=== PATIENT | male | born 1955 | race Two or more races ===

== ENCOUNTER → 2020-10-05 | Outpatient (CLI) | payer OTHER ==
[2019-10-22 15:41] VITALS: BP 94/41
[~2020-10-05] MED LIST: FLUV100T2 PO; LISI-334 PO
--- NOTE | 2020-10-05 10:57 | EKG ---
[facility] [address] [place] [address] Test Date: 2020-10-05 Test Time: 10:53:01 Pat Name: NICOLE ADKINS Department: Room: Gender: M [employer]: : 1955 Requested By: HALINA TELLEZ Order Number: [id number] Reading MD: Henry Gage Measurements Intervals [place] Rate: 69 P: 54 NM: 138 QRS: 70 QRSD: 74 T: 59 QT: 380 QTc: 409 Interpretive Statements SINUS RHYTHM NORMAL ECG RI6.02 Compared to ECG 10/20/2019 21:27:32 No significant changes Electronically Signed On 10-08-2020 11:49:07 COMMERCIAL PHOTOGRAPHER by Henry Gage
[2020-10-05 11:10] LABS: BASO # 0.1 x10^3/uL (0.0-0.2); BASO % 2 % (0-3); EOS # 0.2 x10^3/uL (0.0-0.7); EOS % 3 % (0-3); HEMATOCRIT 29.4 % (39.0-53.0); HEMOGLOBIN 9.9 g/dL (13.0-17.5); LYMPH # 0.8 x10^3/uL (1.0-4.8); LYMPH % 13 % (24-48); MEAN CORPUSCULAR HEMOGLOBIN 29 pg (25-35); MEAN CORPUSCULAR HGB CONC 34 g/dL (31-37); MEAN CORPUSCULAR VOLUME 86 fL (79-100); MONO # 0.6 x10^3/uL (0.0-1.1); MONO % 10 % (0-9); NEUT # 4.8 x10^3/uL (1.8-7.7); NEUT % 73 % (31-73); PLATELET COUNT 344 x10^3/uL (140-400); RED BLOOD COUNT 3.43 x10^6/uL (4.30-5.70); RED CELL DISTRIBUTION WIDTH 16.7 % (11.5-14.5); WHITE BLOOD COUNT 6.6 x10^3/uL (4.0-11.0)
[2020-10-05 11:26] LABS: ALBUMIN 3.4 g/dL (3.4-5.0); C-REACTIVE PROTEIN 10.4 mg/L (0-3.3); CALCIUM 8.9 mg/dL (8.5-10.1); CREATININE 0.8 mg/dL (0.7-1.3); GFR 97.3; POTASSIUM 3.8 mmol/L (3.5-5.1)
--- NOTE | 2020-10-05 13:48 | RAD ---
XR CHEST 2V INDICATION: Reason: PRE-OP RIGHT HIP REPLACEMENT 10/25/20 / Spl. Instructions: / History: . COMPARISON STUDY: 10/20/2019. FINDINGS: Lungs: Normal lung volume. Right lower lung zone nodular opacity, new since 10/20/2019. Pleura: No pleural effusion or pneumothorax. Heart and Mediastinum: The cardiomediastinal silhouette is normal. The great vessels of the thorax ar e normal. Bones and Soft Tissues: The bones and soft tissues are within normal limits. IMPRESSION: New right lower lung zone nodular opacity, nonspecific but could represent a focus of infection/infla mmation or potentially a pulmonary nodule. This should be further characterized with unenhanced CT ch est. Electronically signed by: Nahid Rivera MD (10/05/2020 1:45 PM) [id number]
[2020-10-05 22:08] LABS: HEMOGLOBIN A1C 5.9 % (4.8-5.6)
== END ==
LOC: SURGPAT 10:24
PROVIDERS: ATTEND Orthopaedic Surgery
DX: Z01.818 Encounter for other preprocedural examination (principal); M16.11 Unilateral primary osteoarthritis, right hip; R91.8 Other nonspecific abnormal finding of lung field
CPT/HCPCS: 36415; 71046; 80048; 82040; 82306; 83036; 85025; 85610; 85730; 86140; 87641; 93005

== ENCOUNTER → 2021-02-03 | Outpatient (CLI) | payer OTHER ==
[2019-10-22 15:41] VITALS: BP 94/41
[~2021-02-03] MED LIST changes: +AMLO-187 PO; +BENZ1TAB5 PO; +ERGO500027 PO; +FLUO40CA2 PO; -LISI-334 PO; +LISI20TA18 PO
[2021-02-03 13:15] LABS: CALCIUM 8.9 mg/dL (8.5-10.1); CREATININE 1.2 mg/dL (0.7-1.3); GFR 60.8
[2021-02-03 13:17] LABS: POTASSIUM 2.9 mmol/L (3.5-5.1)
[2021-02-03 13:18] LABS: BASO # 0.1 x10^3/uL (0.0-0.2); BASO % 1 % (0-3); EOS % 1 % (0-3); HEMATOCRIT 36.4 % (39.0-53.0); HEMOGLOBIN 12.3 g/dL (13.0-17.5); LYMPH # 1.1 x10^3/uL (1.0-4.8); LYMPH % 23 % (24-48); MEAN CORPUSCULAR HEMOGLOBIN 30 pg (25-35); MEAN CORPUSCULAR HGB CONC 34 g/dL (31-37); MEAN CORPUSCULAR VOLUME 88 fL (79-100); MONO # 0.6 x10^3/uL (0.0-1.1); MONO % 11 % (0-9); NEUT # 3.2 x10^3/uL (1.8-7.7); NEUT % 64 % (31-73); PLATELET COUNT 388 x10^3/uL (140-400); RED BLOOD COUNT 4.15 x10^6/uL (4.30-5.70); RED CELL DISTRIBUTION WIDTH 16.2 % (11.5-14.5)
[2021-02-03 13:19] LABS: PROTHROMBIN TIME PATIENT 12.4 SEC (11.7-14.0)
--- NOTE | 2021-02-03 13:43 | NUR ---
PT HERE FOR PRETESTING PRIOR TO RIGHT HIP ARTHROPLASTY ON 02/09/2021. PREOP LABS K+ 2.9. DR WAKEFIELD'S OFFICE NOTIFIED OF LAB RESULTS. SPOKE WITH CLINT MARCUS. FAXED LAB RESULTS TO CLINT AT DR WAKEFIELD'S OFFICE.
[2021-02-04 00:10] LABS: HEMOGLOBIN A1C 5.8 % (4.8-5.6)
== END ==
LOC: SURGPAT 12:33
PROVIDERS: ATTEND Orthopaedic Surgery
DX: Z01.812 Encounter for preprocedural laboratory examination (principal); M16.11 Unilateral primary osteoarthritis, right hip; Z20.822 Contact with and (suspected) exposure to COVID-19
CPT/HCPCS: 80048; 82040; 82306; 83036; 85025; 85610; 85651; 85730; 87641; U0003; U0005

== ENCOUNTER 2021-02-09 07:03 | Inpatient (IN) | payer OTHER ==
[~2021-02-09] VITALS: Ht 177.8 cm; Wt 60.3 kg
[2021-02-09] VITALS (11 sets, daily range): BP systolic 90–110; BP diastolic 34–68
[~2021-02-09 07:03] MED LIST changes: +ACETAMINOPHEN 500 MG TABLET PO PRN; -AMLO-187 PO; -BENZ1TAB5 PO; +DEXAMETHASONE SOD PHOS 4 MG/ML VIAL ONE; -ERGO500027 PO; -FLUO40CA2 PO; +GABAPENTIN 300 MG CAPSULE. PO PRN; +GLYCOPYRROLATE 1 MG/5 ML VIAL. ONE; +HYDROmorphone 2 MG/ML VIAL IVP PRN; +IV RINGERS,LACTATED 1000ML 1,000 ML IV SCH; +KETOROLAC 30 MG/ML VIAL. ONE; +LIDOCAINE 2% PF 5 ML VIAL. ONE; +MELOXICAM 7.5 MG TABLET PO PRN; +MIDAZOLAM HCL/PF 2 MG/2 ML VIAL. ONE; +MORPHINE SULFATE 2 MG/ML VIAL. IVP PRN; +MORPHINE SULFATE 5 MG, KETOROLAC 30MG VIAL 30 MG, ROPIVacaine 0.5% PF 60 ML, EPINEPHrin... INT ART ONE; +ONDANSETRON PF 4 MG/2 ML VIAL. ONE; +PHENYLEPHRINE 10 MG/ML VIAL. ONE; +PROCHLORPERAZINE 10 MG/2 ML VIAL. IVP PRN; +PROPOFOL 10 MG/ML (20ML) VIAL. IV ONE; +SEVOFLURANE > 120 MINUTES. IH ONE; +TRANEXAMIC ACID 1,000 MG in IV NS 50ML -- 1ST BAG INJ ONE; +ceFAZolin SODIUM IV Push 1 GM VIAL. IVP PRN; +fentaNYL PF VIAL 100 MCG/2 ML VIAL IVP PRN; +fentaNYL PF VIAL 100 MCG/2 ML VIAL ONE
[2021-02-09] MEDS ORDERED: BENZ1TAB5 PO (07:14)
[2021-02-09] MEDS ORDERED: FLUO40CA2 PO (07:14)
[2021-02-09] MEDS ORDERED: AMLO-187 PO (07:15)
[2021-02-09] MEDS ORDERED: ERGO500027 PO (07:16)
[2021-02-09] MEDS ORDERED: TRANEXAMIC ACID 1,000 MG in IV NS 50ML -- 2ND BAG INJ ONE (08:00)
[2021-02-09] MEDS ORDERED: 0.9 % SODIUM CHLORIDE 10 ML DISP.SYRIN. IV PRN (08:15)
[2021-02-09] MEDS ORDERED: ZOLPIDEM 5 MG TABLET. PO PRN (08:15)
[2021-02-09] MEDS ORDERED: CALCIUM CARBONATE 500 MG TAB.CHEW PO PRN (08:15)
[2021-02-09] MEDS ORDERED: PROCHLORPERAZINE 5 MG TABLET. PO PRN (08:15)
[2021-02-09] MEDS ORDERED: ceFAZolin SODIUM IV Push 1 GM VIAL. IVP SCH (08:15)
[2021-02-09] MEDS ORDERED: fentaNYL PF VIAL 100 MCG/2 ML VIAL IVP PRN (08:15)
[2021-02-09] MEDS ORDERED: diphenhydrAMINE 50 MG/ML VIAL IVP PRN (08:15)
[2021-02-09] MEDS ORDERED: MORPHINE SULFATE 2 MG/ML VIAL. IVP PRN (08:15)
[2021-02-09] MEDS ORDERED: DEXTROSE 50% 25 GM / 50ML DISP.SYRIN. IV PRN (08:15)
[2021-02-09] MEDS ORDERED: TRANEXAMIC ACID in NS IVPB 50 ML ONE ×2 (08:36→08:37)
--- NOTE | 2021-02-09 08:38 | HP ---
ADMIT DATE: 02/09/2021 PREOPERATIVE HISTORY AND PHYSICAL CHIEF COMPLAINT: Bilateral hip pain, right worse than left. HISTORY OF PRESENT ILLNESS: The patient is a 66-year-old male who has many years of progressively worsening hip pain that is acutely worse on the chronic pain he is feeling in the right groin radiating to the right upper thigh and has had severe right groin pain worse with activity over the past year, worse in the cold and has been taking a lot of ibuprofen as a result, but very limited in his activities of daily living. PAST MEDICAL HISTORY: Significant for hypertension and obsessive compulsive disorder. PAST SURGICAL HISTORY: Bilateral hip surgeries in the past for iliotibial band release. FAMILY HISTORY: He denies any significant family history. SOCIAL HISTORY: Denies smoking, alcohol or drug use. MEDICATIONS: List is reviewed. ALLERGIES: He has no known drug allergies. REVIEW OF SYSTEMS: No recent febrile illness, chest pain, shortness of breath, constitutional symptoms or other medical problems. PHYSICAL EXAMINATION: GENERAL: He is a pleasant, cooperative 66-year-old male. VITAL SIGNS: Height 70 inches, weight 133 pounds. HEENT: Atraumatic, normocephalic. HEART: Regular rate and rhythm. LUNGS: Clear to auscultation bilaterally. ABDOMEN: Benign. EXTREMITIES: Examination of the left hip reveals severe groin pain on the right with even limited right hip range of motion, worse than the left. He has a negative straight leg raise bilaterally. Moderate pain on movement of the left hip. Normal alignment, stability, bilateral knees and ankles. LABORATORY DATA: X-rays show severe degenerative change on the right hip with evidence of previous core decompressions bilaterally and better maintenance of the joint line on the left hip. IMPRESSION: Right hip pain with osteoarthritis and history of core decompression, bilateral hips. TREATMENT PLAN: I had gone over with him that his hip pain is really worsening despite nonoperative treatment and that he has severe degenerative change. We talked about risks, benefits, postoperative course in his previous clinic visit and reviewed those today including the possibility of leg length inequality, nerve or blood vessel damage, infection, instability, premature wear, loosening, medical or other anesthetic complications among others. All of his questions were answered. He wishes to proceed with surgical evaluation and treatment for a right total hip arthroplasty and will undergo joint center observation to follow. SYDNEY/ASMITA/ANNALISA DR: SYDNEY/yudith TID: [id number]
[2021-02-09] MEDS: MULTIVITAMIN with MINERAL TABLET. PO SCH (09:00)
[2021-02-09] MEDS ORDERED: VANCOMYCIN 1 GM VIAL. ONE (09:01)
[2021-02-09] MEDS ORDERED: fentaNYL PF VIAL 100 MCG/2 ML VIAL ONE (11:55)
[2021-02-09] MEDS: fentaNYL PF VIAL 100 MCG/2 ML VIAL IVP PRN ×2 (11:58→12:17)
[2021-02-09] MEDS: ONDANSETRON PF 4 MG/2 ML VIAL. IVP SCH ×2 (12:00→17:16)
[2021-02-09] MEDS: ONDANSETRON ODT 4 MG TAB.RAPDIS. PO SCH ×2 (12:00→17:15)
[2021-02-09] MEDS: IV NORMAL SALINE 1000ML BAG 1,000 ML IV SCH (12:30)
--- NOTE | 2021-02-09 13:47 | NUR ---
Patient arrived from PACU around 1146 in a bed. Sister Shell at bedside. He is on room air. Vital signs stable. He is very sedated and is not really able to answer questions upon admission so his sister was able to assist with admission questions. AUBREE dressing to right hip working properly with small amount of bloody drainage noted. Dentures at bedside. Knee high SPARKLE hose on and SCDs. Patient likes to cross his legs and sleep on his side so education was given in regards to hip precautions even though he had an anterior surgery which does not require them to be as strict. He is malnourished so Dietary consult was placed. Patients sister requested for possible SNF at discharge and stated patient needs a walker. Will continue to monitor.
[2021-02-09] MEDS: amLODIPine BESYLATE 10 MG TABLET PO SCH (13:48)
[2021-02-09] MEDS: ceFAZolin SODIUM IV Push 1 GM VIAL. IVP SCH ×2 (14:52→20:21)
--- NOTE | 2021-02-09 15:35 | PDOC4 ---
Operative Note Operative Note Date of surgery: 02/09/2021 Preoperative diagnosis: Degenerative joint disease right hip Postoperative diagnosis: Same Operative procedure: Right total hip arthroplasty with anterior approach Surgeon Aston Air Conditioning Mechanic: Ronny hyoos Anesthesia: General Estimated blood loss: 150 cc Complications: None Drains: None Operative indications: Please see my orthopedic clinic note and dictated history and physical for detailed operative indications and note that we covered risks benefits postoperative course of the procedure. All his questions were answered and she wishes to proceed with surgical evaluation and treatment having given informed consent Operative text: Patient was identified procedure verified patient placed in the supine position on the [place] fracture table after adequate amounts of general anesthesia were administered. All bony prominences were well-padded and right hip was prepped and draped in the standard sterile fashion. After timeout was performed patient procedure identified and verified an incision was made just distal to the anterior superior iliac spine running along the tensor fascia mena for a distance of about 4 inches. Fascia was incised tensor fascia mena was taken laterally and circumflex vessels were located and coagulated and the anterior capsule was exposed with the rectus femoris gently retracted medially along with the underlying fascia that was dissected free. Capsule was split in a T-shaped incision and superior aspect of the capsule was excised and further superior release was carried out with the hip in external rotation. Hip was returned to 40 degrees external rotation and a napkin ring cut was made with an Avenir Conrad broach for reference napkin ring was removed and femoral head was removed and sized. Reaming was carried out from a size 49 to a size 53 with a size 54 Biomet G7 acetabular shell was placed in proper version under fluoroscopic guidance and a single superior screw was placed for additional fixation. A 36 mm vitamin E liner was impacted into place. Femur was brought into maximum external rotation extension and adduction and release was carried out at the 11 o'clock position to free up the femur and retractors were placed medially and above the greater trochanter for maximum femoral exposure box osteotome was used along with the rattail rasp and successive size broaching up to a size 5 which provided excellent stability and fit within the canal. Calcar reaming was carried out and trial fitting with a +3.5 36 mm head to reproduce leg length and offset appropriately. This was verified under fluoroscopic g uidance. Trial components were removed and a size 5 standard offset collared Avenir stem was impacted into place with a +3.5 ceramic 36 mm head. Excellent stability and range of motion were noted and leg length reproduced according to measurements from the contralateral side. Thorough irrigation carried out with dilute Betadine solution and then washed further with normal saline solution and pulse lavage. Intra-articular mixture was injected subperiosteally throughout the joint capsule and subcutaneous areas and 1 g vancomycin sprinkled throughout the joint capsule area. Fascia was closed with #1 PDS strata fix suture in a running fashion subcutaneous closure with buried Vicryl skin closure with subcuticular Monocryl and a milton dressing was applied. Patient was returned to recovery room in stable condition having tolerated the procedure well. Ronny hoyos was present for the procedure and assisted in the patient positioning prepping draping retraction closure and dressings HALINA TELLEZ MD February 09, 2021 15:35
[2021-02-09] MEDS ORDERED: WARFARIN 7.5 MG TABLET. PO ONE (16:00)
[2021-02-09] MEDS: BENZTROPINE MESYLATE 1 MG TABLET. PO SCH (17:15)
[2021-02-09] MEDS: FERROUS SULFATE 325 MG TABLET. PO SCH (17:15)
--- NOTE | 2021-02-09 21:40 | NUR ---
Patient assisted to restroom and attempting to void. Patient unable to void at this time. Informed Patient he may need straight catheter. Patient refused at this time. Addendum: 02/09/21 at 2142 by BRENT HOANG RN Amended: Links added.
[2021-02-10] MEDS: ONDANSETRON ODT 4 MG TAB.RAPDIS. PO SCH ×2 (00:05→05:32)
[2021-02-10] MEDS: ONDANSETRON PF 4 MG/2 ML VIAL. IVP SCH ×2 (00:05→05:31)
[2021-02-10] MEDS: IV NORMAL SALINE 1000ML BAG 1,000 ML IV SCH ×2 (00:06→20:50)
[2021-02-10] MEDS: oxyCODONE IR 5 MG TABLET PO PRN ×4 (00:08→21:15)
[2021-02-10] MEDS: ceFAZolin SODIUM IV Push 1 GM VIAL. IVP SCH (01:55)
[2021-02-10 03:04] VITALS: BP 91/34
[2021-02-10] MEDS: GABAPENTIN 100 MG CAPSULE. PO SCH ×3 (05:31→21:14)
[2021-02-10] MEDS: traMADol 50 MG TABLET PO SCH ×4 (05:31→23:42)
[2021-02-10] MEDS ORDERED: MAGNESIUM HYDROXIDE 2,400 MG/30 ML ORAL.SUSP. PO PRN (06:00)
[2021-02-10 06:39] VITALS: BP 91/34
[2021-02-10 07:35] LABS: PROTHROMBIN TIME PATIENT 15.3 SEC (11.7-14.0)
[2021-02-10] MEDS: MELOXICAM 7.5 MG TABLET PO SCH (07:52)
[2021-02-10] MEDS: MULTIVITAMIN with MINERAL TABLET. PO SCH (07:53)
[2021-02-10] MEDS: FERROUS SULFATE 325 MG TABLET. PO SCH ×2 (07:53→17:20)
[2021-02-10] MEDS: FLUoxetine HCL 20 MG CAPSULE PO SCH (07:53)
[2021-02-10] MEDS: ACETAMINOPHEN 500 MG TABLET PO SCH ×3 (07:53→21:15)
[2021-02-10] MEDS: BENZTROPINE MESYLATE 1 MG TABLET. PO SCH (07:54)
[2021-02-10] MEDS: amLODIPine BESYLATE 10 MG TABLET PO SCH (07:55)
--- NOTE | 2021-02-10 08:42 | RAD ---
Right hip: 02/09/2021 11:53 AM. Reason for study: Postoperative Comparison: None. Technique: Two views of the right hip are obtained. Findings: There are findings consistent with recent right total hip arthroplasty. Femoral and acetabular hardwa re is in good alignment and position. Immediate postsurgical changes within the regional soft tissues are noted. Acetabular screw does project on the medial cortex of the acetabulum. Impression: Status post right total hip arthroplasty. Acetabular screw projects beyond the medial cortex of the a cetabulum. Electronically signed by: Laura Pierre MD (02/10/2021 8:39 AM) [id number]
[2021-02-10 11:15] VITALS: BP 95/43
[2021-02-10] MEDS ORDERED: ONDANSETRON ODT 4 MG TAB.RAPDIS. PO PRN (12:00)
[2021-02-10] MEDS ORDERED: ONDANSETRON PF 4 MG/2 ML VIAL. IVP PRN (12:00)
[2021-02-10 12:07] LABS: HEMATOCRIT 25.9 % (39.0-53.0); HEMOGLOBIN 8.6 g/dL (13.0-17.5)
--- NOTE | 2021-02-10 13:22 | NUR ---
Pharmacy Warfarin Dosing Note S: Pharmacy consulted to assist with anticoagulation therapy started 02/08/21 O: NICOLE ADKINS is a 66 year old M with [facility] LABS: Last INR: 1.3 Last HGB: 8.6 Last HCT: 25.9 Last PLT: Last dose of 7.5 mg given on 02/09/21 at 1715 Vitamin K given: N Ongoing Drug Interactions: FLUOXETINE, MELOXICAM A:INR of 1.3 is below desired range. Target range for this patient is: 1.6 - 2.5 P: Warfarin dose: 4 mg Today at 1600 Bridge Therapy: none Next INR due tomorrow Pharmacy anticoagulation service will continue to follow. Whit Smith RPH, 02/10/21 [id number]
[2021-02-10] MEDS ORDERED: BISACODYL 10 MG SUPP.RECT. PR PRN (16:00)
[2021-02-10] MEDS ORDERED: WARFARIN 4 MG TABLET. PO ONE (16:00)
[2021-02-10 18:20] VITALS: BP 102/45
--- NOTE | 2021-02-10 19:26 | NUR ---
This nurse changed the patients AUBREE dressing around 0915 because it was fully covered with blood. Incision was intact with no signs of active bleeding noted during dressing change and no dehiscence noted. AUBREE dressing applied without complications. Dressing is only about 1/4 covered with blood by 1800. Dr Clancy was notified in person and stated to not change it again tonight and to just leave it on till tomorrow or the next day to be changed on the day of discharge hopefully. shift nurse manager RN notified and aware.
--- NOTE | 2021-02-10 21:29 | PDOC ---
PROGRESS NOTES Date of Service DATE: 02/10/21 TIME: 21:26 Subjective Subjective Problems overnight: Overall is doing well in terms of pain control he is taking oxycodone for more severe pain alternating with tramadol for less severe and still is needing some help to get up and around Objective Vital Signs Vital Signs Date Time Temp Pulse Resp B/P (MAP) Pulse Ox O2 Delivery O2 Flow Rate FiO2 02/10/21 21:15 22 Room Air 02/10/21 18:20 97.9 75 102/45 (64) 100 97.9 Physical Exam He has some bloody drainage at the distal aspect of his milton drain but no redness or erythema leg lengths are equal distal neurovascular status intact he has good motion and stability Labs Laboratory Tests Test 02/09/21 07:45 02/10/21 06:40 02/10/21 16:38 Prothrombin Time 12.0 SEC (11.7-14.0) 15.3 SEC (11.7-14.0) Prothromb Time International Ratio 0.9 (0.8-1.1) 1.3 (0.8-1.1) Potassium Level 4.3 mmol/L (3.5-5.1) Hemoglobin 8.6 g/dL (13.0-17.5) Hematocrit 25.9 % (39.0-53.0) Mean Corpuscular Hemoglobin Concent 33 g/dL (31-37) SARS-CoV-2 Antigen (Rapid) Negative (NEGATIVE) Laboratory Tests Test 02/10/21 06:40 02/10/21 16:38 Hemoglobin 8.6 g/dL (13.0-17.5) Hematocrit 25.9 % (39.0-53.0) Mean Corpuscular Hemoglobin Concent 33 g/dL (31-37) Prothrombin Time 15.3 SEC (11.7-14.0) Prothromb Time International Ratio 1.3 (0.8-1.1) SARS-CoV-2 Antigen (Rapid) Negative (NEGATIVE) Imaging Intra-Op views fluoroscopically of the right hip show excellent alignment total hip arthroplasty Assessment Assessment POD#1 right total hip arthroplasty Plan Plan of Care He would like to go to a prison facility temporarily due to his limitations and his family taking care of [id number] father Coumadin anticoagulation per pharmacy Continue mobilize with physical therapy Likely [place] dressing change before discharge tomorrow Ciprianotion of Admission Dx: Justifications for Admission: Justification of Admission Dx: N/A HALINA TELLEZ MD February 10, 2021 21:29
--- NOTE | 2021-02-10 21:45 | NUR ---
Has attempted to urinate 4x since 1900. Won't use urinal, unsure of voided amount. Bladder scan shows 736cc. Refused to be straight cathed. "It will hurt too much." Patient informed of procedure, he verbalizes understanding.
--- NOTE | 2021-02-10 23:16 | NUR ---
Patient agreeable to a male nurse straight cathing him, (amish). John, PROMOTIONAL ADVERTISING ASSISTANT cathed patient, reported no resistance and left. This RN removed cath and measured 900cc clear yellow urine.
[2021-02-11] MEDS: ACETAMINOPHEN 500 MG TABLET PO SCH ×4 (03:00→21:20)
[2021-02-11] MEDS: oxyCODONE IR 5 MG TABLET PO PRN ×3 (04:28→21:22)
--- NOTE | 2021-02-11 04:33 | NUR ---
Awake, assisted to toilet, claims "he didnt pee that much". Needs lots of clues w/ maneuvering the walker. Walks on ball of right foot. BP 107/37. Is restless in bed, reminded him to use call light for assist. Reports understanding of order, but doesn't use it.
[2021-02-11 05:55] VITALS: BP 107/37
[2021-02-11] MEDS: GABAPENTIN 100 MG CAPSULE. PO SCH ×3 (06:00→22:00)
--- NOTE | 2021-02-11 06:10 | NUR ---
Voided 20cc clear yellow urine. Denies dysuria, flank pain. Afebrile. UA sent to lab.
[2021-02-11] MEDS: traMADol 50 MG TABLET PO SCH ×3 (06:18→17:45)
--- NOTE | 2021-02-11 06:58 | PDOC ---
PROGRESS NOTES Date of Service DATE: 02/11/21 TIME: 06:56 Subjective Subjective Problems overnight: Had some difficulty urinating last night and was straight catheterized for about 900 cc and voided about 20 cc on his own. He is in no distress otherwise Objective Vital Signs Vital Signs Date Time Temp Pulse Resp B/P (MAP) Pulse Ox O2 Delivery O2 Flow Rate FiO2 02/11/21 06:18 20 Room Air 02/11/21 05:55 98.0 72 107/37 (60) 98 98.0 Physical Exam On examination he has some bloody drainage distal aspect of his incision no redness or erythema leg lengths equal distal neurovascular status intact Labs Laboratory Tests Test 02/09/21 07:45 02/10/21 06:40 02/10/21 16:38 Prothrombin Time 12.0 SEC (11.7-14.0) 15.3 SEC (11.7-14.0) Prothromb Time International Ratio 0.9 (0.8-1.1) 1.3 (0.8-1.1) Potassium Level 4.3 mmol/L (3.5-5.1) Hemoglobin 8.6 g/dL (13.0-17.5) Hematocrit 25.9 % (39.0-53.0) Mean Corpuscular Hemoglobin Concent 33 g/dL (31-37) SARS-CoV-2 Antigen (Rapid) Negative (NEGATIVE) Laboratory Tests Test 02/10/21 16:38 SARS-CoV-2 Antigen (Rapid) Negative (NEGATIVE) Assessment Assessment POD#2 right total hip arthroplasty Plan Plan of Care Difficulty urinating, will start Flomax Continue mobilization with physical therapy Coumadin anticoagulation per pharmacy Likely rehab placement later today Justicifation of Admission Dx: Justifications for Admission: Justification of Admission Dx: Yes (Urinary retention) HALINA TELLEZ MD February 11, 2021 06:58
[2021-02-11] MEDS ORDERED: WARF3TAB50 PO (07:03)
[2021-02-11] MEDS ORDERED: TAMS0.4C97 PO (07:03)
[2021-02-11] MEDS ORDERED: OXYC5CAP PO (07:03)
--- NOTE | 2021-02-11 07:04 | SNU/HH DC ---
DISCHARGE ORDERS DISCHARGE INFORMATION: CONDITION ON DISCHARGE: Stable CODE STATUS: Code Status: Full INTERMEDIATE: SNF STAY <30 DAYS: Yes POST DISCHARGE ORDERS: ACTIVITY ORDERS: Activity as tolerated WEIGHT BEARING STATUS: As tolerated DIET AFTER DISCHARGE: Regular WOUND/INCISION CARE: Ice to area for comfort, Do not change dressing OTHER WOUND INSTRUCTIONS: Maintain milton dressing unless saturated FOLLOW-UP: PHYSICIAN FOLLOW-UP: Dr. Clancy or Jacinda 2 weeks postop TREATMENT/EQUIPMENT ORDERS: ADAPTIVE EQUIPMENT NEEDED: Front wheeled walker Physical Therapy For: Evalulation/Treatment DISCHARGE MEDICATIONS: Home Meds Reported Medications Ergocalciferol (Vitamin D2) (Vitamin D2) 1,250 Mcg Capsule, 10963 UNITS PO WEEKLY for supplement, CAP 02/09/21 Amlodipine Besylate (AMLODIPINE BESYLATE) 10 Mg Tablet, 10 MG PO DAILY for HTN, TAB 02/09/21 Fluoxetine Hcl (FLUOXETINE HCL) 40 Mg Capsule, 1 CAP PO [id number] for OCD, #30 CAP 2 Refills 02/09/21 Benztropine Mesylate (BENZTROPINE MESYLATE) 1 Mg Tablet, 1 TAB PO DAILY for anxiety, #60 TAB 02/09/21 Discontinued Reported Medications Fluvoxamine Maleate (FLUVOXAMINE MALEATE) 100 Mg Tablet, 200 MG PO DAILY for OCD, TAB 10/21/19 Lisinopril (LISINOPRIL) 20 Mg Tablet, 1 TAB PO DAILY08, #30 TAB 5 Refills 10/21/19 HALINA CLANCY MD February 11, 2021 07:04
[2021-02-11 07:43] LABS: PROTHROMBIN TIME PATIENT 23.7 SEC (11.7-14.0)
[2021-02-11 08:03] LABS: BILIRUBIN,URINE NEGATIVE (NEG); CLARITY,URINE CLEAR; COLOR,URINE YELLOW; NITRITE,URINE NEGATIVE (NEG); PH,URINE 7.5 (<5.0-8.0); PROTEIN,URINE NEGATIVE (NEG-TRACE); UROBILINOGEN,URINE 0.2 mg/dL (0.2 mg/dL)
[2021-02-11 08:05] LABS: HEMATOCRIT 23.4 % (39.0-53.0); HEMOGLOBIN 7.7 g/dL (13.0-17.5)
[2021-02-11 08:16] LABS: BACTERIA,URINE 0 /HPF (0-FEW); RBC,URINE 0 /HPF (0-2)
[2021-02-11 08:17] LABS: SPERM,URINE PRESENT /HPF
[2021-02-11] MEDS: FLUoxetine HCL 20 MG CAPSULE PO SCH (08:32)
[2021-02-11] MEDS: MULTIVITAMIN with MINERAL TABLET. PO SCH (08:32)
[2021-02-11] MEDS: MELOXICAM 7.5 MG TABLET PO SCH (08:32)
[2021-02-11] MEDS: FERROUS SULFATE 325 MG TABLET. PO SCH ×2 (08:34→17:45)
[2021-02-11] MEDS: BENZTROPINE MESYLATE 1 MG TABLET. PO SCH (08:35)
[2021-02-11] MEDS: amLODIPine BESYLATE 10 MG TABLET PO SCH (09:00)
[2021-02-11] MEDS: TAMSULOSIN 0.4 MG CAP.ER.24H. PO SCH (09:41)
--- NOTE | 2021-02-11 11:09 | NUR ---
Pharmacy Warfarin Dosing Note S: Pharmacy consulted to assist with anticoagulation therapy started 02/08/21 O: NICOLE ADKINS is a 66 year old M with [facility] LABS: Last INR: 2.1 Last HGB: 8.6 Last HCT: 25.9 Last PLT: Last dose of 4 mg given on 02/10/21 at 1536 Vitamin K given: N Ongoing Drug Interactions: FLUOXETINE, MELOXICAM A:INR of 2.1 is within desired range. Target range for this patient is: 1.6 - 2.5 P: Warfarin dose: Hold dose today due to rapid jump in INR Bridge Therapy: none Next INR due tomorrow Pharmacy anticoagulation service will continue to follow. Whit Smith RPH, 02/11/21 1353
[2021-02-11 13:00] VITALS: BP 119/56
--- NOTE | 2021-02-11 13:00 | NUR ---
Pt having urgency and unable to void. Bladder scan and had over 700cc. Will straight cath. Cont. monitor.
--- NOTE | 2021-02-11 13:20 | NUR ---
Prefers a male nurse so Landry MARCUS from Outpatient came to straight cath pt. Tolerated it well. Got 700cc of yellow urine. Encourage to increase po fluids. Cont. monitor.
[2021-02-11 18:07] VITALS: BP 107/47
[2021-02-11 23:07] VITALS: BP 99/47
[2021-02-12] MEDS: ACETAMINOPHEN 500 MG TABLET PO SCH ×2 (03:00→08:29)
[2021-02-12] MEDS: GABAPENTIN 100 MG CAPSULE. PO SCH (06:00)
--- NOTE | 2021-02-12 06:04 | NUR ---
Slept well most of the noc. Voiding less frequently and with more output each time. Unsteady when ambulating, wants to walk on toes of right foot. Very unsteady in bathroom, sets walker to side and hops toward toilet. Explained safest way to use walker, pt verbalized understanding but doesn't demonstrate it.
[2021-02-12] MEDS: traMADol 50 MG TABLET PO SCH ×3 (06:12→11:45)
[2021-02-12] MEDS: TAMSULOSIN 0.4 MG CAP.ER.24H. PO SCH (06:12)
[2021-02-12 06:19] VITALS: BP 115/54
[2021-02-12 06:41] LABS: PROTHROMBIN TIME PATIENT 20.1 SEC (11.7-14.0)
[2021-02-12] MEDS: IV NORMAL SALINE 1000ML BAG 1,000 ML IV SCH (08:15)
[2021-02-12] MEDS: MULTIVITAMIN with MINERAL TABLET. PO SCH (08:29)
[2021-02-12] MEDS: FLUoxetine HCL 20 MG CAPSULE PO SCH (08:29)
[2021-02-12] MEDS: FERROUS SULFATE 325 MG TABLET. PO SCH (08:29)
[2021-02-12 08:30] VITALS: BP 106/44
[2021-02-12] MEDS: MELOXICAM 7.5 MG TABLET PO SCH (08:30)
[2021-02-12] MEDS: BENZTROPINE MESYLATE 1 MG TABLET. PO SCH (08:30)
[2021-02-12] MEDS: amLODIPine BESYLATE 10 MG TABLET PO SCH (09:00)
--- NOTE | 2021-02-12 09:44 | NUR ---
Pharmacy Warfarin Dosing Note S:Pharmacy consulted to assist with anticoagulation therapy started 02/08/21 with target INR: 1.6 - 2.5 O:NICOLE ADKINS is a 66 year old M with [facility] Allergies:No Known Drug Allergies Height: 5 feet, 10 inches Weight: 60.3 kg LABS: Last INR: 1.7 Last HGB: 7.7 Last HCT: 23.4 Last PLT: - Ongoing Drug Interactions: FLUOXETINE, MELOXICAM A:INR within desired Range. Target Range for this patient is: 1.6 - 2.5 P: Warfarin dose: 2 mg will be given today prior to discharge. Give 2 mg daily. Draw INR on 02/15/21, and request attending physician to dose warfarin for a goal INR 1.6 - 2.5 through end of therapy 03/22/21 (6 weeks of therapy). Indication for warfarin is prevention of VTE after major joint surgery. Whit Smith RPH, 02/12/21 0909
[2021-02-12 10:22] LABS: HEMATOCRIT 23.1 % (39.0-53.0); HEMOGLOBIN 7.6 g/dL (13.0-17.5)
--- NOTE | 2021-02-12 10:40 | NUR ---
Dr. Clancy aware of pt's HGB 7.6. Okay to discharge to facility.
[2021-02-12 10:49] VITALS: BP 106/49
[2021-02-12] MEDS ORDERED: TRAM50TA PO (10:56)
--- NOTE | 2021-02-12 11:00 | NUR ---
Report given to Kasey MARCUS at [facility].
--- NOTE | 2021-02-12 12:45 | NUR ---
Discharge to [facility] by ellis neff.
[2021-02-12] MEDS ORDERED: WARFARIN 2 MG TABLET. PO SCH (13:00)
--- NOTE | 2021-02-12 13:11 | PATHOLOGY ---
[facility] Accession Number: [id number] . 01 Material submitted: . hip - RIGHT HIP BONE AND TISSUE. Modifiers: right . 01 Clinical history: . OA RIGHT HIP RIGHT TOTAL HIP ARTHROPLASTY . 02 Diagnosis: Femoral head and separate segments of bone, cartilage, and synovial tissue, right total hip arthroplasty: - Advanced degenerative arthritis with focal subarticular fibrosis and cystic degeneration. (JPM:marisel; 02/12/2021) QMS 02/12/2021 0957 Local . 02 Electronically signed: . Baldev Vega MD, Pathologist NPI- [id number] . 01 Gross description: . The specimen is received in formalin, labeled "Ilan Harris, right hip bone and tissue". Received is a femoral head measuring 4.7 x 4.6 x 4.4 cm in greatest dimensions. The articular surface is smooth to irregular in contour with evidence of eburnation. Mild osteophytic lipping is identified. Sectioning reveals yellow-galeana cut surfaces with no grossly distinct nodules or lesions. The specimen is submitted representatively in cassette A1, following decalcification. . Also received within the specimen container are bone reamings and fragments of femoral neck measuring 9.2 x 7.5 x 2.2 cm in aggregate dimensions. Roof Panel Hanger sections are submitted in cassette A2, following light decalcification. (CAA; 02/10/2021) QAC/QAC 02/10/2021 1040 Local . 02 Pathologist provided ICD-10: M16.11 . 02 CPT . 293859, [id number] Specimen Comment: A courtesy copy of this report has been sent to [phone], [phone] Specimen Comment: [id number] Specimen Comment: Report sent to / DR MOSES Performed at: 01 [facility] [address], [place], [place] [id number] MD Destin Moody MD Phone: [phone] Performed at: 02 [facility] [address], [place] [id number] MD Baldev Vega MD Phone: [phone]
--- NOTE | 2021-02-12 21:31 | DS ---
DATE OF DISCHARGE: 02/12/2021 ORTHOPEDIC DISCHARGE SUMMARY PRINCIPAL DIAGNOSIS: Degenerative joint disease, right hip. PROCEDURE: Right total hip arthroplasty. DISPOSITION: nursing home facility. DISPOSITION MEDICATIONS: Include oxycodone 5 mg p.o. q.4 hours p.r.n. severe pain, tramadol 50 mg p.o. q.4 hours p.r.n. moderate pain, Flomax 0.4 mg p.o. daily for urinary retention and warfarin sodium as directed by anticoagulation clinic, resume preoperative medications. DISCHARGE INSTRUCTIONS: Activity is weightbearing as tolerated. Avoid extremes of range of motion of the right hip, but no formal hip precautions due to anterior approach. Maintain AUBREE dressing, call if saturated, otherwise when suction machine stops, cut tail and tape over dressing to maintain seal. Follow up with Dr. Clancy or Dr. Monaco 2 weeks postoperatively. BRIEF DESCRIPTION OF HOSPITAL COURSE: The patient underwent a total hip arthroplasty and really overall had good pain control. He did have some bloody drainage on his dressings, which required a change. He also had postoperative urinary retention and required straight catheterization and that situation improved on Flomax, so he was urinating adequately on date of discharge, 02/12/2021. He was also had some acute blood loss anemia and hemoglobin was 7.7-7.8 range on postop day #2 and 7.7-7.6 range on postop day #3, but he was asymptomatic and ambulating well and he was discharged to [facility] facility in stable condition. LEONEL DR: Dontrell TID: [id number]
[2021-02-15] MEDS ORDERED: ERGOCALCIFEROL (VITAMIN D2) 50,000 UNIT CAPSULE. PO SCH (09:00)
== END 2021-02-12 12:45 | DRG 470 ==
LOC: SURG 07:03 → 4 SOUTHEST 12:25 → OBSVTOIN 02-11 14:14
PROVIDERS: ADMIT Orthopaedic Surgery; ATTEND Orthopaedic Surgery
PROC: 0SR904Z Replacement of Right Hip Joint with Ceramic on Polyethylene Synthetic Substitute, Open Approach (ICD-10-PCS; principal; 2021-02-09 09:00)
DX: M16.11 Unilateral primary osteoarthritis, right hip (principal); D62 Acute posthemorrhagic anemia; F42.9 Obsessive-compulsive disorder, unspecified; G89.29 Other chronic pain; I10 Essential (primary) hypertension; Z96.641 Presence of right artificial hip joint; Z20.822 Contact with and (suspected) exposure to COVID-19; Z79.899 Other long term (current) drug therapy
CPT/HCPCS: 36415; 73502; 76000; 81001; 84132; 85014; 85018; 85610; 86850; 86900; 86901; 87426; A4213; A4930; A6223; A6258; A6402; A6550; C1776; G0378; G0379; J0171; J0690; J1100; J1885; J2250; J2270; J2370; J2405; J2704; J2795; J3010; J3370; J3490; J7030; U0003; U0005; 97110-GP; 97116-GP; 97150-GP; 97530-GO; 97530-GP; 97535-GO

== ENCOUNTER 2021-03-20 16:22 | Emergency (ER) | payer OTHER ==
[~2021-03-20] VITALS: Ht 175.3 cm; Wt 45.4 kg
[~2021-03-20 16:22] MED LIST changes: -ACETAMINOPHEN 500 MG TABLET PO PRN; +AMLO-187 PO; +BENZ1TAB5 PO; -DEXAMETHASONE SOD PHOS 4 MG/ML VIAL ONE; +ERGO500089 PO; +FLUO40CA2 PO; -GABAPENTIN 300 MG CAPSULE. PO PRN; -GLYCOPYRROLATE 1 MG/5 ML VIAL. ONE; -HYDROmorphone 2 MG/ML VIAL IVP PRN; -IV RINGERS,LACTATED 1000ML 1,000 ML IV SCH; -KETOROLAC 30 MG/ML VIAL. ONE; -LIDOCAINE 2% PF 5 ML VIAL. ONE; -MELOXICAM 7.5 MG TABLET PO PRN; -MIDAZOLAM HCL/PF 2 MG/2 ML VIAL. ONE; -MORPHINE SULFATE 2 MG/ML VIAL. IVP PRN; -MORPHINE SULFATE 5 MG, KETOROLAC 30MG VIAL 30 MG, ROPIVacaine 0.5% PF 60 ML, EPINEPHrin... INT ART ONE; -ONDANSETRON PF 4 MG/2 ML VIAL. ONE; +OXYC5CAP PO; -PHENYLEPHRINE 10 MG/ML VIAL. ONE; -PROCHLORPERAZINE 10 MG/2 ML VIAL. IVP PRN; -PROPOFOL 10 MG/ML (20ML) VIAL. IV ONE; -SEVOFLURANE > 120 MINUTES. IH ONE; +TAMS0.4C97 PO; +TRAM50TA PO; -TRANEXAMIC ACID 1,000 MG in IV NS 50ML -- 1ST BAG INJ ONE; +WARF3TAB50 PO; -ceFAZolin SODIUM IV Push 1 GM VIAL. IVP PRN; -fentaNYL PF VIAL 100 MCG/2 ML VIAL IVP PRN; -fentaNYL PF VIAL 100 MCG/2 ML VIAL ONE
--- NOTE | 2021-03-20 18:22 | PHYS DOC ---
Past Medical History Past Medical History: Hypertension, Other Additional Past Medical Histor: OCD, ALCOHOL ABUSE PATIENT STATES "YEARS AGO" Past Surgical History: Other Additional Past Surgical Histo: BILATERAL HIP SURGERY Smoking Status: Never Smoker Alcohol Use: Sober Drug Use: None General Adult EDM: Chief Complaint: SHORTNESS OF BREATH HPI: HPI: 66-year-old male past medical history of hypertension, ocd, bruxism, and former alcohol abuse presents to the ED with complaints of " short of breath and breathing heard and felt dizzy," that occurred while patient was at home, lasted for a few minutes. States his air conditioner is on long because he lives with his elderly father who gets cold easily. Reports right hip pain after surgery [address] Clancy. Is on oxycodone 5 mg at home and forgot to take his medication today. No history of DVT or PE. Reports no appetite and has lost 30 pounds. No history of Covid. Is not vaccinated for Covid. No history of lung disease but does report smoking tobacco. Review of Systems: Review of Systems: Constitutional: Denies fever or chills. [] Eyes: Denies change in visual acuity. [] HENT: Denies nasal congestion or sore throat. [] Respiratory: Denies cough or hemoptysis Cardiovascular: Denies chest pain or or syncope GI: Denies nausea, vomiting, or diarrhea. [] Musculoskeletal: Denies back pain or joint pain or unilateral lower extremity swelling Integument: Denies rash or diaphoresis Neurologic: Denies headache, focal weakness or sensory changes. [] Endocrine: Denies polyuria or polydipsia. [] Lymphatic: Denies swollen glands. [] Psychiatric: Denies depression or anxiety. [] Heart Score: C/O Chest Pain: No Risk Factors: Risk Factors: DM, Current or recent (<one month) smoker, HTN, HLP, family history of CAD, obesity. Risk Scores: Score 0 - 3: 2.5% MACE over next 6 weeks - Discharge Home Score 4 - 6: 20.3% MACE over next 6 weeks - Admit for Clinical Observation Score 7 - 10: 72.7% MACE over next 6 weeks - Early Invasive Strategies Allergies: Allergies: Allergies Coded Allergies Type Severity Reaction Last Updated Verified No Known Drug Allergies 02/03/21 No Physical Exam: PE: Constitutional: No acute distress, very cachectic and malnourished-does not appear to care well for himself HENT: Normocephalic, atraumatic, Eyes: EOMI, conjunctiva normal, no discharge. Neck: Normal range of motion, supple, Cardiovascular: S1/2 present, regular rhythm Lungs & Thorax: Speaking in full sentences, bilateral equal chest rise, no tachypnea or increased work of breathing, no wheezing, rales, crackles, bilater al equal breath sounds Abdomen: soft, no tenderness, Skin: Warm, dry, no erythema, no rash. [] Back: No tenderness, no CVA tenderness. [] Extremities: No tenderness, no cyanosis, no unilateral lower extremity edema Neurologic: Alert and oriented X 3, normal motor function, normal sensory function, no focal deficits noted. [] Psychologic: Affect normal, judgement normal, mood normal. [] EKG: EKG: Sinus rhythm at 61 bpm, no axis deviation, T wave inversion aVL and V2, no ST elevations or ST depressions, no active chest pain Radiology/Procedures: Radiology/Procedures: IMAGING REPORT Signed PATIENT: NICOLE ADKINS MACCOUNT: [id number] : 1955 LOCATION: ER AGE: 66 SEX: M EXAM STATUS: REG ER ORD. PHYSICIAN: GHAZAL POTTS DO REASON: soa, r/o pe, OMNI 350 80 ML IV PROCEDURE: CT ANGIOGRAPHY CHEST Exam: CT of chest with contrast INDICATION: Short of air TECHNIQUE: Sequential axial images through the chest obtained following the administration of 80 mL of Isovue-370 IV contrast. Sagittal and coronal reformatted images were reconstructed from the axial data and reviewed. 3-D reformatted images were reconstructed from the axial data and reviewed. Exposure: One or more of the following in the visualized dose reduction techniques were utilized for this examination: 1. Automated exposure control 2. Adjustment of the MA and/or KV according to patient size 3. Use of iterative of reconstructive technique Comparisons: Chest x-ray same day FINDINGS: Visualized portions of the thyroid are unremarkable. No enlarged mediastinal lymph nodes are identified. Heart size is normal. No pericardial effusion. Thoracic aorta has a normal course and caliber. Pulmonary artery is not enlarged. No pulmonary embolus identified within the main, lobar or segmental pulmonary arteries. Airways are patent. No consolidation or pneumothorax. There is a nodular opacity at the right lower lobe measuring 1.4 cm series 4 image 105. There is mild adjacent groundglass opacity. Mild centrilobular emphysematous change is also noted. No pleural effusion or thickening. Visualized upper abdomen is unremarkable. No suspicious osseous lesions or acute fractures. IMPRESSION: 1. No pulmonary embolus identified within the main, lobar or segmental pulmonary arteries. 2. A 1.4 cm nodular opacity in the right lower lobe. Recommend follow-up with either PET/CT, or 3 month follow-up chest CT Electronically signed by: Nohemy Macdonald MD (03/20/2021 9:04 PM) [facility] DICTATED and SIGNED BY: NOHEMY MACDONALD MD DATE: 03/20/[id number] 0 IMAGING REPORT Signed PATIENT: NICOLE ADKINS MACCOUNT: [id number] : 1955 LOCATION: ER AGE: 66 SEX: M EXAM STATUS: REG ER ORD. PHYSICIAN: GHAZAL POTTS DO REASON: soa PROCEDURE: CHEST AP ONLY Exam: Chest one view INDICATION: Short of air TECHNIQUE: Frontal view of the chest Comparisons: 10/05/2020 FINDINGS: The cardiomediastinal silhouette and pulmonary vessels are within normal limits. Persistent nodular opacity at the right lower lobe. No pleural effusion. IMPRESSION: Right lower lobe nodular opacity. CT is recommended for further evaluation. Electronically signed by: Nohemy Macdonald MD (03/20/2021 8:16 PM) [facility] DICTATED and SIGNED BY: NOHEMY MACDONALD MD DATE: 03/20/[id number] 0 Course & Med Decision Making: Course & Med Decision Making Pertinent Labs and Imaging studies reviewed. (See chart for details) Concern for brief episode of shortness of breath, likely related to warm weather and dehydration. Repeat heart rate in normal sinus rhythm. Patient not requiring any oxygen. Symptoms have resolved. Anemia improved from prior. Creatinine slightly elevated. Was treated with fluids in the ED. CTA with no pulmonary embolus or infiltrates. Report printed off and given to patient to take to primary care physician to follow-up pulmonary nodules. Will discharge home with strict ED return precautions were given for syncope, chest pain, abscess, unilateral leg swelling, neurologic deficits or severe pain. Encouraged urgent outpatient follow-up with PMD in 24 to 48 hours. Life-threatening processes were considered but are low suspicion at this time, given history, p hysical exam and ED workup. Pt was educated on all prescription medications and adverse effects. All patient's questions were answered and pt was stable at time of discharge. Life/limb-threatening differential includes but is not limited to, ACS, dysrhyt hmia, pneumothorax or hemothorax, pulmonary embolus, pneumonia, bronchoconstriction, pulmonary edema, angioedema, epiglottitis, tracheitis, Nirmal's angina, RPA/SEWER CONNECTOR, anaphylaxis, angioedema, cardiac tamponade or murmurs, pericarditis, myocarditis, poisoning or toxicity, sepsis or autoimmune/neurologic disease. I spoken with the patient and her caregivers. I explained the patient's condition, diagnoses and treatment plan based on the information available to me at this time. I have answered the patient and her caregiver's questions and addressed any concerns. The patient and her caregivers have a good understanding of patient's diagnosis, condition and treatment plan as can be expected at this point. Vital signs have been stable. Patient's condition is stable and appropriate for discharge from the emergency department. Patient will pursue further outpatient evaluation with primary care physician or other designated or consulting physician as outlined in the discharge instructions. The patient and/or caregivers are agreeable to this plan of care and follow-up instructions have been explained in detail. The patient and/or caregivers have received these instructions in written form and have expressed an understanding of the discharge instructions. The patient and/or caregivers are aware that any significant change of condition or worsening of symptoms should prompt immediate return to this or the closest emergency department or call to 911. Pablo Disclaimer: Pablo Disclaimer: This electronic medical record was generated, in whole or in part, using a voice recognition dictation system. Departure Departure Impression: Primary Impression: Dyspnea Additional Impressions: Elevated d-dimer VIKAS (acute kidney injury) Dehydration Pulmonary nodule Referrals: LETTY MOSES (PCP) In 1 to 2 days for reevaluation, to evaluate kidney function, and pulmonary nod ule Patient Instructions: Acute Kidney Injury, Shortness of Breath Additional Instructions: EMERGENCY DEPARTMENT GENERAL DISCHARGE INSTRUCTIONS Thank you for coming to [facility] Emergency Department (ED) today and trusting us with you care. We trust that you had a positive experience in our Emergency Department. If you wish to speak to the department management, you may call the Director at [phone]. YOUR FOLLOW UP INSTRUCTIONS ARE FOLLOWS: 1. Do you have a private Doctor? If you do not have a private doctor, please ask for a resource list of physicians or clinics that may be able to assist you with follow up care. 2. The Emergency Physicain has interpreted your x-rays. The X-Ray specialist will also review them. If there is a change in the findings, you will be notified in 48 hours when at all possible. 3. A lab test or culture has been done, your results will be reviewed and you will be notified if you need a change in treatment. ADDITIONAL INSTRUCTIONS AND INFORMATION: 1. Your care today has been supervised by a physician who is specially trained in emergency care. Many problems require more than one evaluation for a complete diagnosis and treatment. We recommend that you schedule your follow up appointment as recommended to ensure complete treatment of you illness or injury. If you are unable to obtain follow up care and continue to have a problem, or if your condition worsens, we recommend that you return to the ED. 2. We are not able to safely determine your condition over the phone nor are we able to give sound medical advice over the phone. For these safety reasons, if you call for medical advice we will ask you to come to the ED for further evaluation. 3. If you have any questions regarding these discharge instructions please call the ED at [phone]. SAFETY INFORMATION: In the interest of safety, wellness, and injury prevention; we encourage you to wear your sealbelt, if you smoke; quite smoking, and we encourage family to use a protective helmet for bicycling and other sporting events that present an increased risk for head injury. IF YOUR SYMPTOMS WORSEN OR NEW SYMPTOMS DEVELOP, OR YOU HAVE CONCERNS ABOUT YOUR CONDITION; OR IF YOUR CONDITION WORSENS WHILE YOU ARE WAITING FOR YOUR FOLLOW UP APPOINTMENT; EITHER CONTACT YOUR PRIMARY CARE DOCTOR, THE PHYSICIAN WHOSE NAME AND NUMBER YOU WERE GIVEN, OR RETURN TO THE ED IMMEDIATELY. GHAZAL REYES DO Mar 20, 2021 18:22
[2021-03-20 19:04] LABS: BASO # 0.1 x10^3/uL (0.0-0.2); BASO % 1 % (0-3); EOS % 0 % (0-3); HEMATOCRIT 31.2 % (39.0-53.0); HEMOGLOBIN 10.8 g/dL (13.0-17.5); LYMPH # 0.9 x10^3/uL (1.0-4.8); LYMPH % 15 % (24-48); MEAN CORPUSCULAR HEMOGLOBIN 30 pg (25-35); MEAN CORPUSCULAR HGB CONC 35 g/dL (31-37); MEAN CORPUSCULAR VOLUME 87 fL (79-100); MONO # 0.5 x10^3/uL (0.0-1.1); MONO % 8 % (0-9); NEUT # 4.5 x10^3/uL (1.8-7.7); NEUT % 75 % (31-73); PLATELET COUNT 360 x10^3/uL (140-400); RED BLOOD COUNT 3.57 x10^6/uL (4.30-5.70); RED CELL DISTRIBUTION WIDTH 15.6 % (11.5-14.5); WHITE BLOOD COUNT 6.1 x10^3/uL (4.0-11.0)
[2021-03-20 19:15] LABS: CALCIUM 9.1 mg/dL (8.5-10.1); CREATININE 1.4 mg/dL (0.7-1.3); GFR 50.9; POTASSIUM 3.3 mmol/L (3.5-5.1)
[2021-03-20 19:21] LABS: ALBUMIN 4.1 g/dL (3.4-5.0); TOTAL BILIRUBIN 0.4 mg/dL (0.2-1.0); TOTAL PROTEIN 8.1 g/dL (6.4-8.2)
[2021-03-20] MEDS ORDERED: IOHEXOL 350 MG/ML 100 ML VIAL. IV ONE (20:15)
--- NOTE | 2021-03-20 20:18 | RAD ---
Exam: Chest one view INDICATION: Short of air TECHNIQUE: Frontal view of the chest Comparisons: 10/05/2020 FINDINGS: The cardiomediastinal silhouette and pulmonary vessels are within normal limits. Persistent nodular opacity at the right lower lobe. No pleural effusion. IMPRESSION: Right lower lobe nodular opacity. CT is recommended for further evaluation. Electronically signed by: Nohemy Jeffery MD (03/20/2021 8:16 PM) [facility]
[2021-03-20] MEDS ORDERED: IV NORMAL SALINE 1000ML BAG 1,000 ML IV ONE (20:30)
[2021-03-20] MEDS ORDERED: CONTRAST GIVEN. MC PRN (20:30)
--- NOTE | 2021-03-20 21:06 | RAD ---
Exam: CT of chest with contrast INDICATION: Short of air TECHNIQUE: Sequential axial images through the chest obtained following the administration of 80 mL o f Isovue-370 IV contrast. Sagittal and coronal reformatted images were reconstructed from the axial d serene and reviewed. 3-D reformatted images were reconstructed from the axial data and reviewed. Exposure: One or more of the following in the visualized dose reduction techniques were utilized for this examination: 1. Automated exposure control 2. Adjustment of the MA and/or KV according to patient size 3. Use of iterative of reconstructive technique Comparisons: Chest x-ray same day FINDINGS: Visualized portions of the thyroid are unremarkable. No enlarged mediastinal lymph nodes are identifi ed. Heart size is normal. No pericardial effusion. Thoracic aorta has a normal course and caliber. Pulmon liset artery is not enlarged. No pulmonary embolus identified within the main, lobar or segmental pulmo nary arteries. Airways are patent. No consolidation or pneumothorax. There is a nodular opacity at the right lower l obe measuring 1.4 cm series 4 image 105. There is mild adjacent groundglass opacity. Mild centrilobul ar emphysematous change is also noted. No pleural effusion or thickening. Visualized upper abdomen is unremarkable. No suspicious osseous lesions or acute fractures. IMPRESSION: 1. No pulmonary embolus identified within the main, lobar or segmental pulmonary arteries. 2. A 1.4 cm nodular opacity in the right lower lobe. Recommend follow-up with either PET/CT, or 3 mo nth follow-up chest CT Electronically signed by: Nohemy Jeffery MD (03/20/2021 9:04 PM) [facility]
[2021-03-20 22:07] VITALS: BP 112/50
--- NOTE | 2021-03-21 00:08 | EKG ---
[facility] [address] [place] [address] Test Date: 2021-03-20 Test Time: 18:49:08 Pat Name: NICOLE ADKINS Department: Room: Gender: M Test Bore Helper: : 1955 Requested By: GHAZAL POTTS Order Number: [id number] Reading MD: Measurements Intervals Hobbs Rate: 61 P: 90 WV: 156 QRS: 85 QRSD: 84 T: 74 QT: 426 QTc: 430 Interpretive Statements SINUS ARRHYTHMIA OTHERWISE NORMAL ECG RI6.02 No previous ECG available for comparison
== END 2021-03-20 22:35 | disposition home or self-care (01) ==
LOC: ER 16:22
DX: N17.9 Acute kidney failure, unspecified (principal); R06.02 Shortness of breath; E86.0 Dehydration; R91.1 Solitary pulmonary nodule; R79.1 Abnormal coagulation profile
CPT/HCPCS: 36415; 71045; 71275; 80053; 84484; 85025; 85379; 93005; 96360; 99285; J7030; Q9967

== ENCOUNTER 2021-04-30 20:33 | Emergency (ER) | payer OTHER ==
[~2021-04-30] VITALS: Ht 168.9 cm; Wt 44.1 kg
[2021-04-30 20:50] VITALS: BP 138/66
--- NOTE | 2021-04-30 22:58 | RAD ---
Right hip 2 views with one view pelvis. HISTORY: Fall Single view was taken of the pelvis. There is a total joint prosthesis on the right. There is signifi cant myositis ossificans surrounding the prosthesis and hip joint on the right. There is no acute pel gena fracture. AP and lateral views were taken of the right hip. There is extensive myositis ossificans about the hi p. There is no acute fracture. IMPRESSION: 1. Right hip prosthesis in position. 2. 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 3. No acute left hip fracture. Electronically signed by: Bogdan Ovalles MD (04/30/2021 10:56 PM) [facility]
[2021-04-30] MEDS ORDERED: oxyCODONE/APAP 5/325 1 TAB TABLET PO ONE (23:00)
[2021-04-30] MEDS ORDERED: OXYC1TAB15 PO (23:15)
--- NOTE | 2021-04-30 23:17 | PHYS DOC ---
Past Medical History Past Medical History: Hypertension, Other Additional Past Medical Histor: OCD, ALCOHOL ABUSE PATIENT STATES "YEARS AGO" (BETHANY MEDINA APRN) Past Surgical History: Other Additional Past Surgical Histo: BILATERAL HIP AND CLARK SX (BETHANY MEDINA APRN) Smoking Status: Never Smoker Alcohol Use: None Drug Use: None (BETHANY MEDINA APRN) General Adult EDM: Chief Complaint: HIP PAIN HPI: HPI: Patient is a 66 year old male who presents to the emergency department reporting that he fell in his psychiatrist office just prior to arrival. Patient reports falling onto his right hip. Patient states he fears he may have broken his right hip again. Patient reports a right hip replacement years ago. Patient states it hurts a 10 out of 10. Patient denies any other injuries from his fall, denies hitting his head, denies loss of consciousness. Patient denies any other physical complaints or physical concerns. (BETHANY MEDINA APRN) Review of Systems: Review of Systems: 14 body systems of review of systems have been reviewed. See HPI for pertinent positives and negative responses, otherwise all other systems are negative, nonpertinent or noncontributory. Constitutional: Negative except as outlined in HPI above. Skin: Negative except as outlined in HPI above. Eyes: Negative except as outlined in HPI above. HENT: Negative except as outlined in HPI above. Respiratory: Negative except as outlined in HPI above. Cardiovascular: Negative except as outlined in HPI above. GI: Negative except as outlined in HPI above. : Negative except as outlined in HPI above. Musculoskeletal: Negative except as outlined in HPI above. Integument: Negative except as outlined in HPI above. Neurologic: Negative except as outlined in HPI above. Endocrine: Negative except as outlined in HPI above. Lymphatic: Negative except as outlined in HPI above. Psychiatric: Negative except as outlined in HPI above. (BETHANY MEDINA APRN) Heart Score: C/O Chest Pain: No Risk Factors: Risk Factors: DM, Current or recent (<one month) smoker, HTN, HLP, family history of CAD, obesity. Risk Scores: Score 0 - 3: 2.5% MACE over next 6 weeks - Discharge Home Score 4 - 6: 20.3% MACE over next 6 weeks - Admit for Clinical Observation Score 7 - 10: 72.7% MACE over next 6 weeks - Early Invasive Strategies (BETHANY MEDINA APRN) Allergies: Allergies: Allergies Coded Allergies Type Severity Reaction Last Updated Verified No Known Drug Allergies 02/03/21 No (BETHANY MEDINA APRN) Physical Exam: PE: Constitutional: Well developed, well nourished, no acute distress, non-toxic appearance. 66-year-old male in no apparent distress. Ambulatory to room with steady gait. HENT: Normocephalic, atraumatic. Eyes: Conjunctiva normal, no discharge. Neck: Normal range of motion, no stridor. Cardiovascular: No cyanosis appreciated, distal cap refill less than 2 seconds. Lungs & Thorax: Patient is in no respiratory distress, no audible adventitious lung sounds appreciated. Abdomen: Nontender, no abnormalities noted. Skin: Warm, dry, no erythema, no rash. Back: No tenderness, no deformities. Extremities: No tenderness, no cyanosis, no clubbing, ROM intact, no edema. Except for right lower extremity, hip area. Patient complains of pain to palpation, no deformity noted, patient ambulating without difficulty, steady gait, no outward rotation or shortening of the right lower extremity, +2 posterior tibial/dorsalis pedis pulse. No swelling appreciated. No crepitus appreciated. Distal cap refill is less than 2 seconds. Neurologic: Alert and oriented X 3, normal motor function, normal sensory function, no focal deficits noted. Psychologic: Affect normal, judgement normal, mood normal. (BETHANY MEDINA APRN) Current Patient Data: Vital Signs: Vital Signs Date Time Temp Pulse Resp B/P (MAP) Pulse Ox O2 Delivery O2 Flow Rate FiO2 04/30/21 20:50 97.9 86 16 138/66 (70) 96 Room Air 97.9 (BETHANY MEDINA APRN) EKG: EKG: [] (BETHANY MEDINA APRN) Radiology/Procedures: Radiology/Procedures: PATIENT: NICOLE ADKINS MACCOUNT: [id number] : 1955 LOCATION: ER AGE: 66 SEX: M EXAM STATUS: REG ER ORD. PHYSICIAN: BETHANY MEDINA APRN REASON: fall PROCEDURE: HIP RIGHT 2V WITH PELVIS Right hip 2 views with one view pelvis. HISTORY: Fall Single view was taken of the pelvis. There is a total joint prosthesis on the right. There is significant myositis ossificans surrounding the prosthesis and hip joint on the right. There is no acute pelvic fracture. AP and lateral views were taken of the right hip. There is extensive myositis ossificans about the hip. There is no acute fracture. IMPRESSION: 1. Right hip prosthesis in position. 2. 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 3. No acute left hip fracture. Electronically signed by: Bogdan Ovalles MD (04/30/2021 10:56 PM) [facility] DICTATED and SIGNED BY: BOGDAN OVALLES MD DATE: 04/30/21 [id number] (BETHANY MEDINA APRN) Course & Med Decision Making: Course & Med Decision Making Pertinent Labs and Imaging studies reviewed. (See chart for details) 66-year-old male, vital signs reviewed, presents to the emergency department with chief complaint of right hip pain after a fall. Patient's physical examination unremarkable, will order x-ray of right hip and pelvis to rule out acute fracture. Will give the patient 1 Percocet p.o. for reported 10 out of 10 pain. X-ray unremarkable, no fracture noted per house radiologist interpretation. Discussed findings with patient, patient states he is happy to know he did not break his hip. Discussed with the patient all findings and diagnostic testing as well as the need to follow-up with their primary care provider for further evaluation and treatment or return to the ED if any new or worsening symptoms. Strict return precautions were also discussed at length, the patient voiced understanding and agreement with the discharge planning. The patient was nontoxic in appearance, in no apparent distress, and hemodynamically stable at the time of disposition. (BETHANY MEDINA APRN) Dragon Disclaimer: Dragon Disclaimer: This electronic medical record was generated, in whole or in part, using a voice recognition dictation system. (BETHANY MEDINA APRN) Departure Departure Impression: Primary Impression: Fall Qualified Codes: W19.XXXA - Unspecified fall, initial encounter Additional Impression: Contusion of right hip Qualified Codes: S70.01XA - Contusion of right hip, initial encounter Disposition: HOME / SELF CARE / HOMELESS Condition: GOOD Referrals: ALHOEINI,LETTY H (PCP) Patient Instructions: Contusion, Fall Prevention and Home Safety Additional Instructions: You were seen today in the emergency department for a fall onto your right hip. An x-ray was performed, there was no fracture or injury noted. Please use ice packs 30 minutes on and 30 minutes off while awake as we discussed. Please follow-up with your primary care physician this Monday for ongoing pain management. Thank you for visiting our Emergency Department. It was a pleasure taking care of you today in the emergency department and we appreciate you trusting us with your care. If any additional problems come up don't hesitate to return to visit us. Please follow up with your primary care provider so they can plan additional care if needed and know about the problem that you had. If symptoms worsen come back to the Emergency Department. Any concerning symptoms that start such as chest pain, shortness of air, weakness or numbness on one side of the body, running high fevers or any other concerning symptoms return to the ER. EMERGENCY DEPARTMENT GENERAL DISCHARGE INSTRUCTIONS Thank you for coming to [facility] Emergency Department (ED) today and trusting us with you care. We trust that you had a positive experience in our Emergency Department. If you wish to speak to the department management, you may call the Director at [phone]. YOUR FOLLOW UP INSTRUCTIONS ARE FOLLOWS: 1. Do you have a private Doctor? If you do not have a private doctor, please ask for a resource list of physicians or clinics that may be able to assist you with follow up care. 2. The Emergency Physicain has interpreted your x-rays. The X-Ray specialist will also review them. If there is a change in the findings, you will be notified in 48 hours when at all possible. 3. A lab test or culture has been done, your results will be reviewed and you will be notified if you need a change in treatment. ADDITIONAL INSTRUCTIONS AND INFORMATION: 1. Your care today has been supervised by a physician who is specially trained in emergency care. Many problems require more than one evaluation for a complete diagnosis and treatment. We recommend that you schedule your follow up appointment as recommended to ensure complete treatment of you illness or injury. If you are unable to obtain follow up care and continue to have a problem, or if your condition worsens, we recommend that you return to the ED. 2. We are not able to safely determine your condition over the phone nor are we able to give sound medical advice over the phone. For these safety reasons, if you call for medical advice we will ask you to come to the ED for further evaluation. 3. If you have any questions regarding these discharge instructions please call the ED at [phone]. SAFETY INFORMATION: In the interest of safety, wellness, and injury prevention; we encourage you to wear your sealbelt, if you smoke; quite smoking, and we encourage family to use a protective helmet for bicycling and other sporting events that present an increased risk for head injury. IF YOUR SYMPTOMS WORSEN OR NEW SYMPTOMS DEVELOP, OR YOU HAVE CONCERNS ABOUT YOUR CONDITION; OR IF YOUR CONDITION WORSENS WHILE YOU ARE WAITING FOR YOUR FOLLOW UP APPOINTMENT; EITHER CONTACT YOUR PRIMARY CARE DOCTOR, THE PHYSICIAN WHOSE NAME AND NUMBER YOU WERE GIVEN, OR RETURN TO THE ED IMMEDIATELY. Scripts Oxycodone/Apap 5-325 (PERCOCET 5-325 MG TABLET ) 1 Each Tablet 1 TAB PO PRN BID PRN for severe pain MDD 2 Tablet(s) for 5 Days, #10 TAB 0 Refills Prov: BETHANY MEDINA APRN 04/30/21 Attending Signature Attending Signature I have reviewed the PA/ELECTRIC TRUCKER's note and plan of care. I was available for consultation as needed during the patient's visit in the emergency department. I agree with the clinical impression, plan, and disposition. (BETHANY JOHNSON DO) BETHANY MEDINA APRN Apr 30, 2021 23:17 BETHANY JOHNSON DO May 01, 2021 18:30
== END 2021-04-30 23:25 | disposition home or self-care (01) ==
LOC: ER 20:33
DX: S70.01XA Contusion of right hip, initial encounter (principal); I10 Essential (primary) hypertension; W18.39XA Other fall on same level, initial encounter; Y93.89 Activity, other specified; Y92.89 Other specified places as the place of occurrence of the external cause; Y99.8 Other external cause status
CPT/HCPCS: 73502; 99284

== ENCOUNTER → 2021-07-07 | Outpatient (CLI) | payer OTHER ==
[~2021-07-07] MED LIST changes: +OXYC1TAB15 PO
--- NOTE | 2021-07-07 18:40 | KCIC ---
INDICATION: Reason: PULMONARY NODULE / Spl. Instructions: / History: COMPARISON: March 2021 TECHNIQUE: Axial CT images obtained through the chest. No intravenous contrast One or more of the following individualized dose reduction techniques were utilized for this examinat ion: 1. Automated exposure control; 2. Adjustment of the mA and/or kV according to patient size; 3 . Use of iterative reconstruction technique. FINDINGS: The right lower lung nodule persists on this examination and currently measures approximately 14 mm. Similar prior. There is some mild bronchiectasis. Scattered cystic changes within the lungs bilaterally which can be seen with emphysema. There is some smaller subpleural regions of nodularity again seen most prominent in the right upper l josefa. This is grossly similar to prior. There is also a nodule at the right lung apex again seen measu ring up to about 6 mm. Partial visualization of right renal cystic lesion. Partially visualized stomach is distended which could be from recent meal unless the patient has symp toms of delayed gastric emptying. There is some debris within the distal esophagus. Calcific atherosclerosis throughout the thoracic aorta. Small amount of pericardial fluid. Scattered small lymph nodes within the mediastinum. There is some heterogeneity of the thyroid. Degenerative changes of the spine. IMPRESSION: Repeat demonstration of pulmonary nodules with dominant nodule again seen in the right lower lobe sim ilar in appearance compared to prior examination. Differential considerations include primary right l josefa neoplasm, inflammatory nodule, parenchymal scarring or round atelectasis. Further workup option i ncludes obtaining a PET/CT but if a PET/CT is not desired at this time continued follow-up will be ne eded in 3 months to ensure no growth. The other smaller nodules can be followed at that time as well. Hyperexpanded lungs with cystic changes bilaterally which can be seen with chronic lung disease such as emphysema. Calcific atherosclerosis. Electronically signed by: Kem Lombardi MD (07/07/2021 6:38 PM) [id number]
== END ==
LOC: KCIC CT 12:31
PROVIDERS: ATTEND Nurse Practitioner
DX: R91.8 Other nonspecific abnormal finding of lung field (principal); J47.9 Bronchiectasis, uncomplicated; I70.0 Atherosclerosis of aorta
CPT/HCPCS: 71250